=== PATIENT | male | born 1945 ===

== ENCOUNTER 2018-04-03 07:50 | Outpatient (CLI) | payer OTHER | END 2018-04-03 08:02 | disposition home or self-care (01) | LOC: NUCLEAR 07:50 | DX: I25.10 Atherosclerotic heart disease of native coronary artery without angina pectoris (principal); I20.8 Other forms of angina pectoris; Z95.0 Presence of cardiac pacemaker | CPT/HCPCS: 78452; 93017; A9500; J0153 ==